=== PATIENT | male | born 1975 | race Caucasian/White ===

== ENCOUNTER 2021-09-29 14:31 | Outpatient (REF) | payer MEDICAID, SELFPAY ==
--- NOTE | ~2021-09-29 | XR_ITS ---
EXAMINATION: LEFT HAND/WRIST CLINICAL INFORMATION: Left hand/wrist COMPARISON: None TECHNIQUE: 4 views FINDINGS: There is no visible acute fracture, dislocation or subluxation seen. The bone and joints appear unremarkable. There is normal articulation of the carpal bones. The soft tissues are normal. XR/XR hand wrist LT IMPRESSION: Unremarkable left hand and wrist exam.
== END 2021-09-29 14:32 | disposition home or self-care (01) ==
LOC: HO.HMGCX 14:31
PROVIDERS: Visit Provider Physician Assistant Medical
DX: M79.642 Pain in left hand (principal); M25.532 Pain in left wrist
CPT/HCPCS: 73110; 73130

== ENCOUNTER 2024-07-15 07:55 | Emergency (ER) | payer OTHER, SELFPAY ==
--- NOTE | ~2024-07-15 | XR_ITS ---
EXAMINATION: XR SHOULDER, RIGHT CLINICAL INFORMATION: injury COMPARISON: None available. TECHNIQUE: AP external rotation, Grashey, scapular Y, and axillary views of the right shoulder. FINDINGS: No acute cortical disruption or malalignment. No lytic or blastic lesions. Focal 6 mm calcification at the supraspinatus tendon insertion adjacent to the greater tuberosity, right humerus. XR/XR shoulder RT min 2V IMPRESSION: Consider tendinosis/tendinopathy, left supraspinatus muscle-tendon. Electronically signed by: Ben Warner MD 07/15/2024 08:29 AM JOSE ALBERTO
[2024-07-15 08:02] VITALS: BP 164/105; PULSE 123; RESP 18; TEMP 36.2; O2SAT 97; BMI 30.1
--- NOTE | 2024-07-15 09:12 | ED_ITS ---
HPI - General Adult General Chief complaint: Extremity Problem Stated complaint: R Shoulder Pain Time Seen by Provider: 07/15/24 09:10 Source: patient Mode of arrival: ambulatory Limitations: no limitations History of Present Illness ED Provider: Sharon Lindsey PA-C HPI narrative: Patient is a 48 year old assigned male at with no reported medical history presenting to the emergency department today with right shoulder pain. Patient states that 2 weeks ago while at work he was moving a television with his boss when the television fell with him holding it, pulling his right shoulder in a downward motion. Patient states that ever since he has had worsening right shoulder pain and decreased range of motion. Patient states that he is right hand dominant. Patient denies any dizziness, lightheadedness, abdominal pain, nausea, vomiting, fever, chills, blurry vision, double vision, loss of vision, chest pain, difficulty breathing, shortness of breath, back pain, night sweats, pain with urination, increased urinary frequency, increased urinary urgency, blood in his urine or stool, syncope or a near syncopal episode, bowel incontinence, bladder incontinence, or any other complaints at this time. Onset (ago): week(s) (2) Location: right and upper extremity Relieving factors: none Exacerbating factors: movement Associated symptoms: denies other symptoms Treatments prior to arrival: none Related Data Home Medications ?Medication ?Instructions ?Recorded ?Confirmed albuterol sulfate 90 mcg/actuation 2 puff inhalation Q6H 09/29/21 aerosol inhaler (ProAir HFA) atenolol 50 mg tablet 50 mg PO BID 09/29/21 clonazepam 0.5 mg tablet 0.5 mg PO TID 09/29/21 diltiazem HCl 240 mg capsule,24 240 mg PO DAILY 09/29/21 hr,extended release (Tiadylt ER) hydrochlorothiazide 12.5 mg capsule 12.5 mg PO DAILY 09/29/21 omeprazole 20 mg tablet,delayed 20 mg PO BID 09/29/21 release ondansetron HCl 4 mg tablet 4 mg PO TID PRN nausea 09/29/21 quetiapine 400 mg tablet,extended 400 mg PO BEDTIME 09/29/21 release 24 hr sertraline 100 mg tablet 200 mg PO QAM 09/29/21 Previous Rx's ?Medication ?Instructions ?Recorded naproxen 500 mg tablet 500 mg PO BID PRN pain 14 days #30 09/29/21 tabs Allergies Allergy/AdvReac Type Severity Reaction Status Date / Time No Known Allergies Allergy Verified 07/15/24 08:05 [No Known Allergies*] Review of Systems Constitutional: Constitutional: Reports no additional constitutional complaints, Denies chills, Denies fever(s) and Denies night sweats Eyes: Eyes: Reports no additional eye complaints, Denies blurry vision, Denies change in vision, Denies diplopia, Denies eye discharge, Denies loss of vision and Denies eye pain ENT: Denies dizziness Cardiovascular: Cardiovascular: Reports no additional cardiovascular complaints, Denies chest pain, Denies lightheadedness, Denies Loss of Conscio usness and Denies dyspnea Respiratory: Respiratory: Reports no additional respiratory complaints and Denies dyspnea Gastrointestinal: Gastrointestinal: Reports no additional gastrointestinal complaints, Denies abdominal pain, Denies melena, Denies hematochezia, Denies change in bowel habits and Denies change in stool character Genitourinary: Genitourinary: Reports no additional male genitourinary complaints, Denies hematuria, Denies oliguria, Denies difficulty urinating, Denies dysuria, Denies urinary frequency, Denies urinary hesitancy, Denies urinary incontinence and Denies urinary urgency Musculoskeletal: Musculoskeletal: Reports no additional musculoskeletal complaints, Denies numbness and Denies tingling Comments: right shoulder pain decreased right shoulder ROM Neurologic: Denies dizziness, Denies loss of vision, Denies numbness and Denies tingling Psychiatric: Psychiatric: Reports no additional psychiatric complaints Endocrine: Endocrine: Reports no additional endocrine complaints Hematologic/Lymphatic: Hematologic/Lymphatic: Reports no additional hematologic/lymphatic complaints Allergic/Immunologic: Allergic/Immunologic: Reports no additional allergic/immunologic complaints [facility] Past Medical History Attestation statement: The following information was validated with the patient. Source: old records reviewed and nursing notes reviewed Social History Social History Advance Directives: No Advance Directives Information Provided: Yes Do you have a plan to hurt others: No Plan Physical Exam ED Vital Signs: Vital Signs - 24 hr 07/15/24 08:02 Temperature 97.2 F Pulse Rate 123 H Respiratory Rate 18 Blood Pressure 164/105 H Pulse Oximetry 97 Oxygen Delivery Method Room Air BMI result Body Mass Index 30.1 Const General: cooperative, no acute distress, alert and awake Nutritional Appearance: well nourished Orientation/consciousness: patient oriented x3 Limitations: no limitations HENMT Head: Yes normal to inspection and Yes atraumatic Ears: hearing grossly normal bilaterally and external ears normal General nose exam: Normal external nose present, no nasal discharge noted and no epistaxis Face and sinus: Yes normal facial exam, No abrasion and No laceration Mouth: Normal oral and palatal mucosa present, no drooling and no muffled voice Eyes General: appearance normal, both eyes and all related structures Periorbital: periorbital findings normal Eyelids: Yes eyelids normal Conjunctivae: conjunctivae normal Pupils: Equal, round and reactive pupils present EOM: EOMs intact bilaterally Neck Neck: Yes normal visual inspection, Yes full ROM and Yes no lymphadenopathy Chest Chest palpation & inspection: normal inspection of the chest Resp Effort & Inspection: normal respiratory effort and able to speak in complete sentences GI Inspection: Yes normal to inspection Neuro General: patient oriented x3 and moves all extremities Cranial nerves: Yes Equal, round and reactive pupils present Cognition (Neuro): normal cognition Extrem Other: pain with right shoulder ROM General: Yes normal to inspection and Yes capillary refill normal Psych Appearance: grossly normal Mental Status: mental status grossly normal Affect: normal affect Attitude: cooperative Thought process: Normal thought process present Thought content: Normal thought content present Insight: Good insight present (Psych) Medical Decision Making Medical Decision Making MDM Narrative: Patient is a 48 year old assigned male at with no reported medical history presenting to the emergency department today with right shoulder pain. Patient's physical exam was as noticed. Patient's right shoulder x-ray showed tendinosis/tendinopathy of the right supraspinatus muscle-tendon. Patient's clinical presentation is consistent with a right rotator cuff injury. I explained my physical exam findings as well as all test results to the patient. I answered all questions asked by the patient. I stressed the importance of the patient taking his medication as directed (either prescribed or as the over the counter packaging recommends). I stressed the importance of the patient following up with his primary care provider, an orthopedic provider, and work connection. I stressed the importance of the patient returning to the emergency department immediately if his symptoms were to worsen or if he were to develop any dizziness, shortness of breath, difficulty breathing, chest pain, blurry vision, loss of vision, nausea, vomiting, abdominal pain, fever, chills, back pain, or any other complaints. Patient verbalized agreement and understanding with this treatment plan and discharge. Differential Diagnosis Differential Diagnoses: The differential diagnosis associated with the presentation includes Right rotator cuff strain Right rotator cuff sprain Right shoulder pain Right shoulder strain Right shoulder injury Admission/Observation Consideration of admission/observation: Escalation of care including admission/observation considered Patient would have been admitted to the hospital had his work up had any findings where hospital admission was appropriate and his clinical presentation warranted hospital admission. Independent Interpretation I performed an independent interpretation of an: Plain X-Ray Interpretation: My interpretation is in agreement with the radiologist's impression of this imaging study. EXAMINATION: XR SHOULDER, RIGHT CLINICAL INFORMATION: injury COMPARISON: None available. TECHNIQUE: AP external rotation, Grashey, scapular Y, and axillary views of the right shoulder. FINDINGS: No acute cortical disruption or malalignment. No lytic or blastic lesions. Focal 6 mm calcification at the supraspinatus tendon insertion adjacent to the greater tuberosity, right humerus. XR/XR shoulder RT min 2V IMPRESSION: Consider tendinosis/tendinopathy, right supraspinatus muscle-tendon. Electronically signed by: Ben Warner MD 07/15/2024 08:29 AM EST Dictated By: Ben Le MD Signed By: Electronically signed by Ben Spear MD 07/15/24 0806 Radiology Impression Discussion of test interpretation with radiology: I have reviewed the radiologist's reading. Discharge Plan Discharge Clinical Impression: Injury of right rotator cuff Patient Disposition: Home, Self-Care Instructions: Rotator Cuff Injury (ED), Rotator Cuff Injury Exercises (DC) Additional Instructions: Follow up with your primary care provider, an orthopedic provider, and work connection. Return to the emergency department immediately if your symptoms worsen or if you develop any dizziness, shortness of breath, difficulty breathing, chest pain, blurry vision, loss of vision, nausea, vomiting, abdominal pain, fever, chills, back pain, or any other complaints. Prescriptions: No Action hydrochlorothiazide 12.5 mg capsule 12.5 mg PO DAILY clonazepam 0.5 mg tablet 0.5 mg PO TID ondansetron HCl 4 mg tablet 4 mg PO TID PRN (Reason: nausea) sertraline 100 mg tablet 200 mg PO QAM quetiapine 400 mg tablet extended release 24 hr 400 mg PO BEDTIME atenolol 50 mg tablet 50 mg PO BID albuterol sulfate [ProAir HFA] 90 mcg/actuation HFA aerosol inhaler 2 puff inhalation Q6H diltiazem HCl [Tiadylt ER] 240 mg capsule,extended release 24 hr 240 mg PO DAILY omeprazole 20 mg tablet,delayed release (DR/EC) 20 mg PO BID naproxen 500 mg tablet 500 mg PO BID PRN (Reason: pain) 14 Days Qty: 30 0RF Referrals: [facility] [place] Family Medicine [Provider Group] (Call to establish and follow up with a primary care provider. If you already have a primary care provider, please follow up with them.) [facility] [place] Primary Care, Joel [Provider Group] (Call to establish and follow up with a primary care provider. If you already have a primary care provider, please follow up with them.) [facility] [place] Primary Care,Mikala [Provider Group] (Call to establish and follow up with a primary care provider. If you already have a primary care provider, please follow up with them.) [facility] [place] Orthopedic Surgeons [Provider Group] (Call to establish and follow up with an orthopedic provider.) Work Connection [Provider Group] (Call to establish and follow up with work connection.) Stand Alone Forms: Work/School Release Print Language: Estonian
[2024-07-15] MEDS: Ketorolac Tromethamine 15 MG/ML VIAL IM (09:26)
[2024-07-15 09:40] VITALS: BP 158/96; PULSE 101; RESP 18; TEMP 36.7; O2SAT 97
== END 2024-07-15 09:41 | disposition home or self-care (01) ==
PROVIDERS: Emergency Provider Student in an Organized Health Care Education/Training Program; PCP Nurse Practitioner Family
DX: S46.001A Unspecified injury of muscle(s) and tendon(s) of the rotator cuff of right shoulder, initial encounter (principal); M25.511 Pain in right shoulder; X50.0XXA Overexertion from strenuous movement or load, initial encounter; X50.9XXA Other and unspecified overexertion or strenuous movements or postures, initial encounter; Y93.9 Activity, unspecified; Y92.89 Other specified places as the place of occurrence of the external cause; Y99.8 Other external cause status; Z79.899 Other long term (current) drug therapy
CPT/HCPCS: 73030; 96372; 99283; 99284; J1885

== ENCOUNTER → 2024-07-15 08:10 | Outpatient (BNV) | payer OTHER, MEDICAID, SELFPAY | PROVIDERS: Visit Provider Radiology Diagnostic Radiology | DX: S46.001A Unspecified injury of muscle(s) and tendon(s) of the rotator cuff of right shoulder, initial encounter (principal) | CPT/HCPCS: 73030 ==

== ENCOUNTER → 2024-07-21 08:00 | Outpatient (BNVA) | payer OTHER, SELFPAY | PROVIDERS: PCP Nurse Practitioner Family; Visit Provider Registered Nurse | DX: Z09 Encounter for follow-up examination after completed treatment for conditions other than malignant neoplasm (principal); S46.011D Strain of muscle(s) and tendon(s) of the rotator cuff of right shoulder, subsequent encounter; X50.0XXD Overexertion from strenuous movement or load, subsequent encounter | CPT/HCPCS: 99204 ==

== ENCOUNTER → 2024-07-28 07:54 | Outpatient (BNVA) | payer OTHER, SELFPAY | PROVIDERS: PCP Nurse Practitioner Family; Visit Provider Registered Nurse | DX: M25.511 Pain in right shoulder (principal); M70.811 Other soft tissue disorders related to use, overuse and pressure, right shoulder | CPT/HCPCS: 99213 ==

== ENCOUNTER → 2024-08-04 08:55 | Outpatient (BNVA) | payer OTHER, SELFPAY | PROVIDERS: PCP Nurse Practitioner Family; Visit Provider Registered Nurse | DX: S46.011D Strain of muscle(s) and tendon(s) of the rotator cuff of right shoulder, subsequent encounter (principal); X50.0XXD Overexertion from strenuous movement or load, subsequent encounter | CPT/HCPCS: 99213 ==

== ENCOUNTER 2024-08-07 07:51 | Outpatient (AMB) | payer OTHER, SELFPAY ==
--- OUTSIDE RECORDS SUMMARY | 2024-08-07 07:53 | XMS_ITS | Clinical Summary ---
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 21 tablet 12/07/2022 Active atenolol (Tenormin) 50 MG tablet Take 50 mg by mouth 2 times daily. 10/19/2022 Active hydroCHLOROthia zide (HYDRODiuril) 12.5 MG tablet Take 12.5 mg by mouth in the morning. 10/31/2022 Active clonazePAM (KlonoPIN) 0.5 MG tablet Take 0.5 mg by mouth 3 times daily. 11/15/2022 Active sertraline (Zoloft) 100 MG tablet TAKE 2 TABLETS BY MOUTH EVERY DAY IN THE MORNING 11/15/2022 Active Tiadylt ER 240 MG 24 hr capsule Take 240 mg by mouth in the morning. 11/29/2022 Active omeprazole (PriLOSEC) [address] capsule Take 40 mg by mouth in the morning. 07/19/2022 Active ondansetron (Zofran) 4 MG tablet TAKE 1 TABLET BY MOUTH EVERY 8 HOURS NEEDED FOR NAUSEA/VOMITI NG FOR 5 DAYS 06/15/2022 Active QUEtiapine XR (SEROquel XR) 400 MG 24 hr tablet Take 400 mg by mouth at bedtime. 10/31/2022 Active amoxicillin (Amoxil) 500 MG capsule Continue Taking 1 tablet (500 mg) by mouth every 8 (eight) hours 9 capsule 12/13/2022 Active Social History Tobacco Use Types Packs/Day Years Used Date Smoking Tobacco: Every Day Cigarettes Tobacco Cessation:Ready to Q uit: No; Counseling Given: Not Answered Alcohol Use Standard Drinks/Week Comments Never 0 (1 standard drink = 0.6 oz pur e alcohol) Comments Unknown Sex and Gender Information Value Date Recorded Sex Assigned at Female 12/06/2022 4:06 PM EDT Legal Sex Male 4:02 PM EDT Gender Identity Female 12/06/2022 4:06 PM EDT Sexual Orientation Choose not to disclose 2022 4:06 PM EDT Last Filed Vital Signs Vital Sign Reading Time Taken Comments Blood Pressure 150/80 12/13/2022 11:21 AM EDT Pulse - - Temperature - - Respiratory Rate - - Oxygen Saturation - - Inhaled Oxygen Concentration - - Weight - - Height - - Body Mass Index - - Plan of Treatment Health Maintenance Due Date Last Done Comments CT Colonography 1975 Colonoscopy 1975 Colorectal Cancer Screening 1975 Dental Oral Exam 1975 Dental Prophylaxis 1975 Dental X-Ray: Full Mouth 1975 Depression Screening 1975 FIT DNA/Cologuard 1975 FIT 1975 FOBT 1975 HIV Screening 1975 Lipid Panel 1975 SDOH Screening 1975 Sigmoidoscopy 1975 Alcohol/Substance Use Screening 1987 Family Planning (PISQ) 08/31/1990 Hepatitis C Screening 08/31/1993 DTaP/Tdap/Td Vaccines (1 - Tdap) 08/31/1994 Hepatitis B Vaccines (1 of 3 - 19+ 3-dose series) 08/31/1994 Pneumococcal Vaccine: Pediat rics (0 to 5 Years) and At-Risk Patients (6 to 49) Years) (1 of 2 - PCV) 08/31/1994 Pap Smear 08/31/1996 Cervical Cancer Screening 08/31/2005 HPV/Cotest 08/31/2005 Mammogram 2015 Dental X-Ray: Bitewings 12/09/2023 12/07/2022 Tobacco Screening 12/14/2023 12/13/2022 COVID-19 Vaccine ( - 2023-2 5 season) 2024 Influenza Vaccine (#1) 2024 Zoster Vaccines (1 of 2) 08/31/2025 RSV Patients and Pa tients Aged 60 years or older (1 - 1-dose 75+ series) 08/31/2050 HIB Vaccines Aged Out No longer eligi ble based on patient's age to complete this topic HPV Vaccines Aged Out No longer eligi ble based on patient's age to complete this topic Hepatitis A Vaccines Aged Out No long er eligible based on patient's age to complete this topic IPV Vaccines Aged Out No longer eligi ble based on patient's age to complete this topic Meningococcal Vaccine Aged Out No jeff kayleigh eligible based on patient's age to complete this topic RSV under 20 months Aged Out No longe r eligible based on patient's age to complete this topic Rotavirus Vaccines Aged Out No longer eligible based on patient's age to complete this topic Procedures Procedure Name Priority Date/Time Associated Diagnosis Comments BITEWING - SINGLE RADIOGRAPHIC IMAGE Routine 12/07/2022 1:00 PM EDT from Last 3 Months or Most Recently Relevant to Health Maintenance Insurance [facility] MEDICAID STAND ADULT
--- OUTSIDE RECORDS SUMMARY | 2024-08-07 07:54 | XMS_ITS | Clinical Summary ---
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 Role Phone Unavailable Primary Care Provider Unavailabl e Social History Tobacco Use Types Packs/Day Years Used Date Smoking Tobacco: Never Assessed Sex and Gender Information Value Date Recorded Sex Assigned at Not on file Gender Identity Not on file Sexual Orientation Not on file Plan of Treatment Health Maintenance Due Date Last Done Comments DTaP,Tdap,and Td Vaccines (1 - Tdap) 08/31/1994 Hepatitis B Vaccines (1 of 3 - 19+ 3-dose series) 08/31/1994 COVID-19 Vaccine (2023-2 5 season) 2024 Influenza Vaccine (#1) 2024 HIB Vaccines Aged Out No longer eligi [...] on patient's age to complete this topic MMR Vaccines Aged Out No longer eligi ble based on patient's age to complete this topic Meningococcal ACWY Vaccine Aged Out N o longer eligible based on patient's age to complete this topic Pneumococcal Vaccine: Pediat rics (0 to 5 Years) and At-Risk Patients (6 to 64 Years) Aged Out No longer eligible b ased on patient's age to complete this topic RSV Immunization Patients Un delon 20 months Aged Out No longer eligible b ased on patient's age to complete this topic Varicella Vaccines Aged Out No longer eligible based on patient's age to complete this topic
--- OUTSIDE RECORDS SUMMARY | 2024-08-07 07:54 | XMS_ITS | Encounter Summary ---
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 Name Role Phone Unavailable Primary Care Provider Unavailabl e Reason for Visit * Reason Onset Date Comments work note 12/14/2022 Encounter Details Date Type Department Care Team (Late st Contact Info) Description 12/14/2022 Telephone [facility] [address] [place] [address] Karen Garrido DDS work note Social History Tobacco Use Types Packs/Day Years Used Date Smoking Tobacco: Every Day Cigarettes Alcohol Use Standard Drinks/Week Comments Never 0 (1 standard drink = 0.6 oz pur e alcohol) Comments Unknown Sex and Gender Information Value Date Recorded Sex Assigned at Female 12/06/2022 4:06 PM EDT Legal Sex Male 4:02 PM EDT Gender Identity Female 12/06/2022 4:06 PM EDT Sexual Orientation Choose not to disclose 2022 4:06 PM EDT COVID-19 Exposure Response Date Recorded In the last 10 days, have yo u been in contact with someone who was confirmed or suspected to have Coronavirus/COVID-19? No / Unsure 12/13/2022 10:50 AM EDT documented as of this encounter Miscellaneous Notes * Telephone Encounter - Rosey Serra - 12/14/2022 10:15 AM EDT Patient called in requesting note for work concerning yesterdays appt. Fax number [phone]. documented in this encounter Plan of Treatment Not on file documented as of this encounter Visit Diagnoses Not on filedocumented in this encounter
[2024-08-07 08:40] VITALS: BMI 30.1
--- NOTE | 2024-08-07 08:40 | MHC.OFFVIS ---
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 Patient reports he has been managing pain with a muscle relaxer and physical therapy, however, he still has discomfort when lifting his arm above his head and to his back. He is also experiencing sharp pains at the right elbow radiating to his right ring and pinky fingers. Patient states he did not have these symptoms prior to his injury. Denies previous injuries or surgeries to his neck or shoulder. 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 He states he was lifting a heavy TV and as the TV was put down he felt a pulling and strain in the right shoulder. He continues to have pain with overhead reaching . He is also experiencing numbness from the elbow down into the hand which extends into the 4th and 5th digit. 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 [employer] Review of Systems Const All systems reviewed & are unremarkable except as noted in HPI and below Physical Exam Vital Signs: BMI result Body Mass Index 30.1 Const General: cooperative and no acute distress Orientation/consciousness: patient oriented x3 Resp Effort & Inspection: normal respiratory effort and able to speak in complete sentences Cardio Peripheral pulses: Peripheral pulses 2+ throughout Neuro General: patient oriented x3 Extrem Other: Right shoulder normal to inspection he has full range of motion in all planes however there are some limitations with forward flexion where he experiences significant pain around 90 degrees. He has 5/5 rotator cuff strength and pain with supraspinatus and external rotation against resistance. Positive Noonan positive Zapata's and positive cross-body abduction. He has a positive Tinel's over the cubital tunnel which radiates down into the 4th and 5th digit. Results Reviewed Results Reviewed: X-rays of the right shoulder obtained on July 15 significant for calcific tendinitis and AC joint arthritis Assessment & Plan Assessment & Plan (1) Calcific tendinitis of right shoulder: Code(s): M75.31 - Calcific tendinitis of right shoulder Category: Medical (2) Right shoulder tendinitis: Code(s): M77.8 - Other enthesopathies, not elsewhere classified Category: Medical (3) Cubital tunnel syndrome on right: Code(s): G56.21 - Lesion of ulnar nerve, right upper limb Category: Medical Plan We discussed options today which includes continuing to work with physical therapy for range of motion and periscapular stabilization. I did offer an injection today which she would like to hold off on. I encouraged him to increase his use of ibuprofen from once a day to 3 times a day. An EMG nerve conduction study of the right upper extremity has been ordered to further evaluate the source of his numbness. He will continue to remain out of work until the EMG study is complete at which point I will follow up to discuss the next step in his treatment. Orders: Orders NE nerve conduction velocity Today R20.0 - Anesthesia of skin, R20.2 - Paresthesia of skin NE electromyogram (EMG) Today R20.0 - Anesthesia of skin, R20.2 - Paresthesia of skin Coding Level of Care Code New Pt Level 3 (14071) Complex EM visit Add On G2211 Diagnoses Calcific tendinitis of right shoulder M75.31 Right shoulder tendinitis M77.8 Cubital tunnel syndrome on right G56.21
== END 2024-08-07 09:12 | disposition home or self-care (01) ==
PROVIDERS: PCP Nurse Practitioner Family; Visit Provider Physician Assistant
DX: M75.31 Calcific tendinitis of right shoulder (principal); M77.8 Other enthesopathies, not elsewhere classified; G56.21 Lesion of ulnar nerve, right upper limb; Z04.2 Encounter for examination and observation following work accident
CPT/HCPCS: 99203; G2211

== ENCOUNTER → 2024-08-07 07:51 | Outpatient (BNVA) | payer OTHER, SELFPAY | PROVIDERS: PCP Nurse Practitioner Family; Visit Provider Physician Assistant | DX: M75.31 Calcific tendinitis of right shoulder (principal); M77.8 Other enthesopathies, not elsewhere classified; G56.21 Lesion of ulnar nerve, right upper limb; R20.0 Anesthesia of skin; R20.2 Paresthesia of skin | CPT/HCPCS: 99202 ==

== ENCOUNTER 2024-09-04 09:28 | Outpatient (AMB) | payer OTHER, SELFPAY ==
--- NOTE | 2024-09-04 09:38 | MHC.OFFVIS ---
Intake Visit Reasons: INJ RT shoulder injection Intake Note: Popeye is a 48 year old male who presents today a for a follow up of right shoulder s/p worker's comp injury to his right RTC, DOI 05/22/24. He has an EMG study scheduled for 09/23/24. Patient reports ongoing discomfort and would like to have an injection todya. Allergies No Known Allergies [No Known Allergies*] Allergy (Verified 08/07/24 08:42) HPI HPI INJ RT shoulder injection: Details: A 49-year-old gentleman returns to the office today for follow-up right shoulder pain. He has been working with physical therapy and continues to have discomfort which is limiting his progress. EMG study is scheduled for September 23. 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 [employer] Review of Systems Const All systems reviewed & are unremarkable except as noted in HPI and below Physical Exam Const General: cooperative and no acute distress Orientation/consciousness: patient oriented x3 Resp Effort & Inspection: normal respiratory effort and able to speak in complete sentences Cardio Peripheral pulses: Peripheral pulses 2+ throughout Neuro General: patient oriented x3 Extrem Other: Right shoulder normal to inspection he has full range of motion in all planes however there are some limitations with forward flexion where he experiences significant pain around 90 degrees. He has 5/5 rotator cuff strength and pain with supraspinatus and external rotation against resistance. Positive Noonan positive [place]'s and positive cross-body abduction. He has a positive Tinel's over the cubital tunnel which radiates down into the 4th and 5th digit. Office Procedures AMB Joint Injection/Aspiration Joint Injection/Aspiration Primary Site: right shoulder Prep: site was prepped using aseptic technique, ethochloride spray was applied and injection warnings given Injected: 80 mg of, DepoMedrol, with 8 mL of, 1% plain lidocaine and in the subcromial space Approach Used: posterolateral Procedure: The patient tolerated the procedure well and there was some relief with the local anesthesia Coding 42335 - Glenohumeral/Tronchanteric Bursa/Intraarticular Procedure code (CPT) selection complete Assessment & Plan Assessment & Plan (1) Right shoulder tendinitis: Code(s): M77.8 - Other enthesopathies, not elsewhere classified Category: Medical (2) Calcific tendinitis of right shoulder: Code(s): M75.31 - Calcific tendinitis of right shoulder Category: Medical Plan Right shoulder injection performed today which she tolerated well. He will continue to work with physical therapy to improve his range of motion and strength. I will contact him once the EMG study is back and we will discuss options at that point. Coding Level of Care Code Est Pt Level 3 (16367) Complex EM visit Add On G2211 Diagnoses Right shoulder tendinitis M77.8 Calcific tendinitis of right shoulder M75.31 CPT Codes Coding - Joint 7: 92083 - Glenohumeral/Tronchanteric Bursa/Intraarticular ([id number])
--- OUTSIDE RECORDS SUMMARY | 2024-09-04 10:14 | XMS_ITS | Clinical Summary ---
Author Organization [employer] Address [address] [facility] [address] [facility] [address] [place] [address] Care Team Providers Care Electrical Equipment Tester Name Role Phone Unavailable Primary Care Provider [...] Most Recently Relevant to Health Maintenance Insurance [facility] MEDICAID STAND ADULT
--- OUTSIDE RECORDS SUMMARY | 2024-09-04 10:14 | XMS_ITS | Clinical Summary ---
Author Organization [facility] ity Address [address] [place] [address] Care Team Providers Care Director Inbound Sales Name Role Phone Unavailable Primary Care Provider Unavailabl e Social History Tobacco Use Types Packs/Day Years Used Date Smoking Tobacco: Never Assessed Sex and Gender Information Value Date Recorded Sex Assigned at Not on file Legal Sex Male 3:59 PM EST Gender Identity Not on file Sexual Orientation [...] patient's age to complete this topic Meningococcal B Vacine Aged Out No lo nger eligible based on patient's age to complete [...]
--- OUTSIDE RECORDS SUMMARY | 2024-09-04 10:14 | XMS_ITS | Encounter Summary ---
Author Organization [employer] Address [address] [facility] [address] [place] [address] Care Team Providers Care Lockstitch Front Edge Tape Sewer Name Role Phone Unavailable Primary Care Provider Unavailabl e Reason for Visit * Reason Onset Date Comments work note 12/14/2022 Encounter Details Date Type Department Care Team (Late st Contact Info) Description 12/14/2022 Telephone [facility] [address] [place] [address] Karen Garrido DDS work note Social History [...] for work concerning yesterdays appt. Fax number [phone]. documented in this encounter Plan of Treatment Not on file documented as of this encounter Visit Diagnoses Not on filedocumented in this encounter
== END 2024-09-04 10:53 | disposition home or self-care (01) ==
PROVIDERS: PCP Nurse Practitioner Family; Visit Provider Physician Assistant
DX: M77.8 Other enthesopathies, not elsewhere classified (principal); M75.31 Calcific tendinitis of right shoulder; Z04.2 Encounter for examination and observation following work accident
CPT/HCPCS: 20610; 99213

== ENCOUNTER → 2024-09-04 09:28 | Outpatient (BNVA) | payer OTHER, SELFPAY | PROVIDERS: PCP Nurse Practitioner Family; Visit Provider Physician Assistant | DX: M75.31 Calcific tendinitis of right shoulder (principal); M77.8 Other enthesopathies, not elsewhere classified | CPT/HCPCS: 20610; 99212; J1010; J2003 ==

== ENCOUNTER 2024-09-10 14:22 | Outpatient (REF) | payer OTHER, SELFPAY ==
--- NOTE | 2024-09-10 14:26 | EMG_ITS ---
Chief complaint: right shoulder and elbow pain, s/p worker's comp injury to his right RTC, DOI 05/22/24. Pain improved since shoulder injection. On and off tingling on 4th and 5th digits. Reason for referral: Evaluate for ulnar neuropathy versus radiculopathy Referred by: Santos SUTTON Procedure done: Right upper extremity NCS/EMG Precautions and/or limitations: None The limb temperature was monitored continuously and remained between 32-36 degrees C during the performance of the NCS. Nerve Conduction Studies Anti Sensory Summary Table ?Stim Site NR Onset (ms) Norm Onset (ms) Peak (ms) Norm Peak (ms) O-P Amp (?V) Norm O-P Amp Site1 Site2 Delta-0 (ms) Dist (cm) Ricardo (m/s) Norm Ricardo (m/s) Right Median Anti Sensory (2nd Digit) Wrist ? 2.3 3.2 <3.6 19.1 >10 Wrist 2nd Digit 2.3 14.0 61 Right Radial Anti Sensory (Thumb) Forearm ? 1.3 2.1 <3.1 13.8 Forearm Thumb 1.3 0.0 Right Ulnar Anti Sensory (5th Digit) Wrist ? 1.9 3.0 <3.7 16.4 >15.0 Wrist 5th Digit 1.9 14.0 74 Motor Summary Table ?Stim Site NR Onset (ms) Norm Onset (ms) O-P Amp (mV) Norm O-P Amp iAmp (mV) Amp (1st) (%) Site1 Site2 Delta-0 (ms) Dist (cm) Ricardo (m/s) Norm Ricardo (m/s) Right Median Motor (Abd Poll Brev) Wrist ? 3.1 <3.9 13.4 >4.5 15.6 100.0 Elbow Wrist 4.0 19.5 49 >45 Elbow ? 7.1 12.9 15.2 96.3 Right Ulnar Motor (Abd Dig Minimi) Wrist ? 2.6 <3.0 8.3 >5 10.5 100.0 B Elbow Wrist 3.1 16.0 52 >45 B Elbow ? 5.7 6.0 8.2 72.3 A Elbow B Elbow 1.3 10.0 77 >45 A Elbow ? 7.0 5.6 7.8 67.5 EMG ?Side Muscle Nerve Root Ins Act Fibs Psw Amp Dur Poly Recrt Int Pat Comment Right 1stDorInt Ulnar C8-T1 Nml Nml Nml Nml Nml 0 Nml Complete Right Biceps Musculocut C5-6 Nml Nml Nml Nml Nml 0 Nml Complete Right Triceps Radial C6-7-8 Nml Nml Nml Nml Nml 0 Nml Complete Right Deltoid Axillary C5-6 Nml Nml Nml Nml Nml 0 Nml Complete Right FlexCarpiUln Ulnar C8,T1 Nml Nml Nml Nml Nml 0 Nml Complete FINDINGS: All motor and sensory nerves tested showed normal latencies, amplitudes and conduction velocities. Concentric needle EMG was performed in selected muscles of the . Study revealed did not reveal signs of electric abnormalities as shown in the table above. IMPRESSION: 1. This is a normal study. 2. There is no electrodiagnostic evidence for median neuropathy, ulnar neuropathy, brachial plexopathy, or cervical radiculopathy. Thank you for your kind referral. Lashell Peña MD, ALEKS Board Certified, [place] Board of Physical Medicine and Rehabilitation (ABPMR) Board Certified, [place] Board of Electrodiagnostic Medicine (ABEM) CODIN 70451 MTDD
--- OUTSIDE RECORDS SUMMARY | 2024-09-10 18:13 | XMS_ITS | Encounter Summary ---
Author Organization [employer] Address [address] [facility] [address] [place] [address] Care Team Providers Care Take Down Inspector Name Role Phone Unavailable Primary Care Provider Unavailabl e Reason for Visit * Reason Onset Date Comments work note 12/14/2022 Encounter Details Date Type Department Care Team (Late st Contact Info) Description 12/14/2022 Telephone [facility] [address] [place] [address] Karen Garrido DDS work note Social History [...] for work concerning yesterdays appt. Fax number [phone]. documented in this encounter Plan of Treatment Not on file documented as of this encounter Visit Diagnoses Not on filedocumented in this encounter
--- OUTSIDE RECORDS SUMMARY | 2024-09-10 18:13 | XMS_ITS | Clinical Summary ---
Author Organization [employer] Address [address] [facility] [address] [place] [address] Care Team Providers Care Email Marketing Executive Name Role Phone Unavailable Primary Care Provider [...] Most Recently Relevant to Health Maintenance Insurance [facility] MEDICAID STAND ADULT
--- OUTSIDE RECORDS SUMMARY | 2024-09-10 18:13 | XMS_ITS | Clinical Summary ---
Author Organization [facility] ity Address [address] [place] [address] Care Team Providers Care Assistant Director Of Financial Aid Name Role Phone Unavailable Primary Care Provider [...]
== END 2024-09-10 14:23 | disposition home or self-care (01) ==
LOC: HO.NEURO 14:22
PROVIDERS: PCP Nurse Practitioner Family; Visit Provider Physician Assistant
DX: R20.0 Anesthesia of skin (principal); R20.2 Paresthesia of skin
CPT/HCPCS: 95886; 95909

== ENCOUNTER → 2024-09-10 14:26 | Outpatient (BNV) | payer OTHER, SELFPAY | PROVIDERS: PCP Nurse Practitioner Family; Visit Provider Physical Medicine & Rehabilitation | DX: R20.0 Anesthesia of skin (principal); R20.2 Paresthesia of skin; M25.511 Pain in right shoulder; M25.521 Pain in right elbow | CPT/HCPCS: 95886; 95909 ==

== ENCOUNTER 2024-09-17 07:00 | Outpatient (RCR) | payer OTHER, SELFPAY ==
--- NOTE | 2024-07-31 08:57 | MHC.PT.EP ---
[facility] [place] [facility] [place] Office [address] Murray Thompson [address] [phone] F: [phone] F: [phone] F: [phone] F: [phone] Physical Therapy Plan of Care Date of Evaluation: 07/31/24 Date of Surgery: Diagnosis: R shoulder pain radiating to fingers. Assessment: Patient is a 48 year old R handed male who presents with s/s consistent with R shoulder pain, radiating to fingers. 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 Patient past medical history includes HTN. Current impairments include pain, posture, ROM, strength, activity tolerance and functional mobility. Functional limitations include decreased ability to sleep, reach, lift, carry, push, pull and dress. Patient is motivated with good rehab potential. Skilled PT will address impairments and functional limitations in order to achieve goals. Frequency and Duration: The patient will be seen 2x/week for 5 weeks Short Term Goals: I with HEP -2 weeks AROM flexion to 150 - 3 weeks ER AROM to 65 - 3 weeks Max pain with daily routine and sleep 4/10 - 3 weeks Custodial Goals: Spadi 30/130 or better - 5 weeks Strength 4+/5 grossly - 5 weeks Max pain with daily routine 2/10 - 5 weeks Full AROM pain free - 5 weeks Treatment Plan: Modalities to reduce pain, spasms and effusion. Manual therapy to restore motion and function. Therapeutic exercise to improve strength and flexibility. Neuromuscular re-education for posture and balance. Therapeutic activities to return to functional activities of daily living. Electronically signed by: Ye Evans, PT Please sign and return to therapist. Thank you for your referral.
--- NOTE | 2025-01-19 11:24 | MHC.PT.DC ---
[facility] [place] [facility] [place] [facility] [place] [facility] [address] [place] Thompson [address] [phone] F: [phone] F: [phone] F: [phone] F: [phone] Physical Therapy Discharge Report Diagnosis: R shoulder pain radiating to fingers. Date of Surgery: Date of Evaluation: 07/31/24 Date of Discharge: 09/21/24 Treatments to Date: 9 Cancellations to Date: No Shows to Date: Discharge Status: Independent with HEP Patient Elected to Stop Discharge Summary: 09/17/24: pt progressing well with strength and ROM. no pain today. progress strength as tolerated until d/c. 09/04/24: responded and progressing well. continue to build strength and motion while managing pain. to get cortisone today. 08/31/24: pt progressing well with skilled PT. less discomfort and pain over the weekend. max pain 09/07 over the weekend. continue to progress as tolerated with strength and posture. 08/27/24: responding well to current program. reduced tissue tension along scap. continue to progress as tolerated with strength. 08/25/24: pt with reduced pain. nearing full flexion AROM. still with some medial scap discomfort addressed manually. continue to progress as tolerated. 08/18/24: pt bothered by pain on medial and sup border of scap. addressed manually with good response. 08/10/24: pt progressing well. some post shoulder discomfort persisting but to lesser degree. 08/03/24: pt progressed with strength and ROM. continue to progress as tolerated. add IR stretching NV. Patient is a 48 year old R handed male who presents with s/s consistent with R shoulder pain, radiating to fingers. 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 Patient past medical history includes HTN. Current impairments include pain, posture, ROM, strength, activity tolerance and functional mobility. Functional limitations include decreased ability to sleep, reach, lift, carry, push, pull and dress. Patient is motivated with good rehab potential. Skilled PT will address impairments and functional limitations in order to achieve goals. Electronically signed by: Ye Evans, PT Please sign and return to therapist. Thank you for your referral.
== END 2025-01-19 11:24 | disposition home or self-care (01) ==
LOC: HO.PTCHIC 07:00
PROVIDERS: PCP Nurse Practitioner Family; Visit Provider Registered Nurse
DX: M25.511 Pain in right shoulder (principal)
CPT/HCPCS: 97110; 97140; 97161

== ENCOUNTER 2024-09-18 08:36 | Outpatient (AMB) | payer OTHER, SELFPAY ==
--- NOTE | 2024-09-18 08:41 | A.OFFVIS_ITS ---
Intake Visit Reasons: OV EMG review R RTC Injury DOI 05/22/24 Intake Note: Popeye is a 48 year old male who presents today a for a follow up of right shoulder s/p worker's comp injury to his right RTC, DOI 05/22/24. Patient was given a cortisone injection at his last visit on 09/04/24 which has provided him with relief. His pain has improved however he continues to have an ongoing pulling sensation at the top of his shoulder. Allergies No Known Allergies [No Known Allergies*] Allergy (Verified 09/18/24 08:51) Medication List - Last Reconciled 09/18/24 by Santos Mendez PA-C atenolol 50 mg PO BID clonazepam 0.5 mg PO TID cyclobenzaprine 1 to 2 orally bedtime PRN; diltiazem HCl ER (Tiadylt ER) 240 mg PO DAILY guanfacine ER 1 mg PO BEDTIME hydrochlorothiazide 12.5 mg PO DAILY ibuprofen 800 mg PO Q8H PRN omeprazole 20 mg PO BID ondansetron HCl 4 mg PO TID PRN quetiapine ER 400 mg PO BEDTIME sertraline 200 mg PO QAM HPI HPI OV EMG review R RTC Injury DOI 05/22/24: Details: 49-year-old gentleman returns to the office today for a follow-up right shoulder injury date of injury 05/24/2024. He states since the injection he has noticed significant relief in the shoulder. He has continued with physical therapy and is regaining his motion and strength. He denies numbness and tingling states that is resolved since the injection. 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 This is a normal study. 2. There is no electrodiagnostic evidence for median neuropathy, ulnar neuropathy, brachial plexopathy, or cervical radiculopathy. Assessment & Plan Assessment & Plan (1) Calcific tendinitis of right shoulder: Code(s): M75.31 - Calcific tendinitis of right shoulder Category: Medical (2) Right shoulder tendinitis: Code(s): M77.8 - Other enthesopathies, not elsewhere classified Category: Medical Plan I encouraged him to continue working with physical therapy and transition to a home exercise program. I explained he may have occasional flare-ups which he should use anti-inflammatories for. He can increase activities as tolerated and will return to work on 09/21 without restrictions. If symptoms arise or there is any concerns he will contact our office otherwise follow up as needed. Coding Level of Care Code Est Pt Level 3 (25008) Complex EM visit Add On G2211 Diagnoses Calcific tendinitis of right shoulder M75.31 Right shoulder tendinitis M77.8
== END 2024-09-18 09:41 | disposition home or self-care (01) ==
LOC: HO.HOS 08:36
PROVIDERS: PCP Nurse Practitioner Family; Visit Provider Physician Assistant
DX: M75.31 Calcific tendinitis of right shoulder (principal); M77.8 Other enthesopathies, not elsewhere classified
CPT/HCPCS: 99213; G2211

== ENCOUNTER → 2024-09-18 08:36 | Outpatient (BNVA) | payer OTHER, SELFPAY | PROVIDERS: PCP Nurse Practitioner Family; Visit Provider Physician Assistant | DX: M75.31 Calcific tendinitis of right shoulder (principal); M77.8 Other enthesopathies, not elsewhere classified | CPT/HCPCS: 99212 ==

== ENCOUNTER 2024-09-23 05:35 | Emergency (ER) | payer OTHER, SELFPAY ==
--- NOTE | ~2024-09-23 | US_ITS ---
EXAMINATION: US ABDOMEN LIMITED CLINICAL INFORMATION: Right upper quadrant tenderness.. COMPARISON: No priors. Correlated to CT dated April 01, 2019. TECHNIQUE: Real-time imaging of the right upper quadrant abdominal viscera. FINDINGS: PANCREAS: No peripancreatic fluid collections. LIVER: Liver measures 18 cm. Increased echotexture. No nodular contour. No solid or cystic lesion identified by the technologist. No intrahepatic biliary ductal dilatation. GALLBLADDER: There is a focal, 2 mm hyperechoic nodule in the gallbladder wall with minimal flow on color Doppler interrogation. No pericholecystic fluid collection or gallbladder wall thickening. COMMON BILE DUCT: 3 mm. RIGHT KIDNEY: 11 cm. Normal echotexture. Normal renal cortical thickness. No hydronephrosis. No solid or cystic lesion. Normal flow on color Doppler interrogation of the renal hilum. FREE FLUID: None. US/US abdomen limited IMPRESSION: Hepatomegaly and steatosis. Probable 2 mm polyp, gallbladder. Recommend follow-up. Electronically signed by: Ben Warner MD 09/23/2024 07:59 AM EDT
[2024-09-23 05:44] VITALS: BP 128/88; PULSE 102; RESP 20; TEMP 36.7; O2SAT 95; BMI 30.1
[2024-09-23 05:52] LABS: MANUAL DIFF FLAG NO
[2024-09-23 05:53] LABS: Basophils Absolute Auto 0.1 X10*3/uL (0.0-0.2); Basophils Percent Auto 0.4 % (0-2); Eosinophils Absolute Auto 0.1 X10*3/uL (0.0-0.4); Eosinophils Percent Auto 0.5 % (0-4); Hematocrit 43.5 % (42.0-52.0); Hemoglobin 15.4 g/dl (14.0-18.0); Imm Gran Abs Auto 0.07 X10*3/uL (0.00-0.03); Imm Gran Pct Auto 0.5 % (0.0-0.4); Lymphocytes Absolute Auto 3.6 X10*3/uL (1.2-4.9); Lymphocytes Percent Auto 24.4 % (20-40); Mean Corpuscular HGB Conc 35.4 g/dl (31.0-36.0); Mean Corpuscular Hemoglobin 33.6 pg (27.0-33.0); Mean Corpuscular Volume 94.8 fL (80.0-98.0); Mean Platelet Volume 8.1 fL (9.4-12.4); Monocytes Absolute Auto 0.6 X10*3/uL (0.1-1.2); Monocytes Percent Auto 4.2 % (2-11); NRBC Pct Auto 0.2 /100WBC (0.0-0.2); Neutrophils Absolute Auto 10.2 x10*3/uL (2.0-8.3); Platelet Count 329 X10*3/uL (160-400); Red Blood Count 4.59 X10*6/uL (4.60-5.80); Red Cell Distribution Width 12.5 % (11.0-16.0); White Blood Count 14.6 X10*3/uL (4.8-10.8)
[2024-09-23 06:14] LABS: Alanine Aminotransferase 82 U/L (0-40); Albumin Level 4.4 g/dL (3.5-5.0); Alkaline Phosphatase 82 U/L (39-117); Anion Gap 15 (12-20); Aspartate Amino Transferase 33 U/L (5-37); Bilirubin Total 0.3 mg/dL (0.0-1.0); Blood Urea Nitrogen 19 mg/dL (9-16); Calcium 9.3 mg/dL (8.4-10.2); Carbon Dioxide 18 mmol/L (22-29); Chloride 106 mmol/L (96-108); Creatinine Clr Calc Pharmacy 83.8; Estimated Glomerular Filt Rate > 60; Glucose Random 176 mg/dL (60-115); Lipase 22 U/L (8-78); Potassium 3.8 mmol/L (3.3-5.1); Sodium 135 mmol/L (135-145); Total Protein 7.6 g/dL (6.5-8.0)
--- NOTE | 2024-09-23 06:29 | ED_ITS ---
HPI - General Adult General Chief complaint: Abdominal Pain Stated complaint: abd pain Time Seen by Provider: 09/23/24 06:29 Source: patient, RN notes reviewed and old records reviewed Mode of arrival: ambulatory Limitations: no limitations History of Present Illness ED Provider: Siri HPI narrative: Patient is a 49-year-old male with history of hypertension, PTSD, anxiety depression presenting to the emergency department with complaint of right upper quadrant abdominal pain since Saturday. Reports associated nausea and vomiting. Denies fevers, diarrhea, constipation. States has had these symptoms intermittently for several years but pain has never been this severe. States pain was preventing him from sleeping the other night. Denies any previous abdominal surgeries. MD complaint: abdominal pain Onset (ago): day(s) Location: abdomen Radiation: non-radiation Severity scale (1-10): 5 Quality: sharp Pain Consistency: colicky Associated symptoms: nausea/vomiting Treatments prior to arrival: none Related Data Home Medications ?Medication ?Instructions ?Recorded ?Confirmed atenolol 50 mg tablet 50 mg PO BID 09/29/21 09/18/24 clonazepam 0.5 mg tablet 0.5 mg PO TID 09/29/21 09/18/24 diltiazem HCl 240 mg capsule,24 240 mg PO DAILY 09/29/21 09/18/24 hr,extended release (Tiadylt ER) hydrochlorothiazide 12.5 mg capsule 12.5 mg PO DAILY 09/29/21 09/18/24 omeprazole 20 mg tablet,delayed 20 mg PO BID 09/29/21 09/18/24 release ondansetron HCl 4 mg tablet 4 mg PO TID PRN nausea 09/29/21 09/18/24 quetiapine 400 mg tablet,extended 400 mg PO BEDTIME 09/29/21 09/18/24 release 24 hr sertraline 100 mg tablet 200 mg PO QAM 09/29/21 09/18/24 guanfacine 1 mg tablet,extended 1 mg PO BEDTIME 09/04/24 09/18/24 release 24 hr Previous Rx's ?Medication ?Instructions ?Recorded ibuprofen 800 mg tablet 800 mg PO Q8H PRN pain #30 tabs 07/21/24 cyclobenzaprine 5 mg tablet See Rx Instructions PO BEDTIME PRN 08/04/24 muscle spasm #10 tabs ibuprofen 600 mg tablet 600 mg PO Q6H PRN pain #20 tabs 09/23/24 ondansetron 4 mg disintegrating 4 mg PO Q8H PRN nausea and 09/23/24 tablet vomiting #10 tabs Allergies Allergy/AdvReac Type Severity Reaction Status Date / Time No Known Allergies Allergy Verified 09/23/24 05:46 [No Known Allergies*] Review of Systems 2 Review of Systems: As per HPI Yes all other systems are reviewed and are negative Constitutional: Constitutional: Reports as per HPI [facility] Social History Social History Patient Tobacco Use Status: Current everyday Tobacco user Advance Directives: No Advance Directives Information Provided: Yes Do you have a plan to hurt others: No Plan Current occupational status: employed 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 Blood pressure normal. Heart rate normal. Respiratory rate normal. Temperature normal. Oxygen saturation normal. Const General: cooperative, healthy appearing and no acute distress Orientation/consciousness: oriented to person, oriented to place, oriented to time and patient oriented x3 Limitations: no limitations HENMT Head: Yes normocephalic and Yes atraumatic Ears: external ears normal General nose exam: Normal external nose present Face and sinus: Yes face symmetric Mouth: oropharynx normal and moist mucous membranes Throat: Yes uvula midline Eyes Pupils: Equal, round and reactive pupils present Neck Neck: Yes normal visual inspection and Yes supple Resp Effort & Inspection: normal respiratory effort and able to speak in complete sentences Auscultation: clear to auscultation bilaterally Cardio Rate: regular rate Rhythm: regular rhythm Heart sounds: S1 normal heart sound present and S2 normal heart sound present GI Palpation (GI): Soft to palpation and Tenderness to palpation present (GI) in the RUQ and Hillman's sign positive Auscultation: normoactive bowel sounds General: Yes no CVA tenderness Back/Spine/Pelvis Back: no CVA tenderness Skin General skin exam: elasticity normal and turgor normal Neuro General: oriented to person, oriented to place, oriented to time, patient oriented x3, moves all extremities, no focal motor deficits and CN's II-XI intact bilaterally Cranial nerves: Yes Equal, round and reactive pupils present Cognition (Neuro): normal cognition Extrem General: Yes full ROM, Yes no pedal edema and Yes no calf tenderness Psych Mental Status: mental status grossly normal Affect: normal affect Thought process: Normal thought process present Medical Decision Making Medical Decision Making [facility] Narrative: Patient is a 49-year-old male with history of hypertension, PTSD, anxiety depression presenting to the emergency department with complaint of right upper quadrant abdominal pain since Saturday. On exam patient is awake, A+Ox3, VS WNL, afebrile, normal neurological exam without focal deficits, physical exam findings as above. Given reported symptoms and physical exam findings, initial differential includes but is not limited to cholecystitis, cholelithiasis, choledocolithiasis, biliary colic. Labs notable for leukocytosis, elevated ALT, normal AST and Tbili. Ultrasound notable for hepatomegaly, steatosis, 2mm gallbladder polyp. My interpretation is in agreement with the radiologist's interpretation. Results discussed with patient and all questions answered. Will refer to GI and general surgery for further evaluation. Return precautions discussed. Will send prescriptions for zofran, 600mg ibuprofen. Patient verbalized understanding of and agreement with plan. Differential Diagnosis Differential Diagnoses: The differential diagnosis associated with the presentation includes As per [facility] Admission/Observation Consideration of admission/observation: Escalation of care including admission/observation considered Patient would have been admitted to the hospital had their work up had any findings where hospital admission was appropriate and their clinical presentation warranted hospital admission. Lab Data [facility] Lab Attestation statement: I reviewed the patient's lab results. As per [facility] 09/23/24 05:46 09/23/24 05:46 Labs: Lab Results 09/23/24 Range/Units 05:46 WBC 14.6 H (4.8-10.8) X10*3/uL RBC 4.59 L (4.60-5.80) X10*6/uL Hgb 15.4 (14.0-18.0) g/dl Hct 43.5 (42.0-52.0) % MCV 94.8 (80.0-98.0) fL MCH 33.6 H (27.0-33.0) pg MCHC 35.4 (31.0-36.0) g/dl RDW 12.5 (11.0-16.0) % Plt Count 329 (160-400) X10*3/uL MPV 8.1 L (9.4-12.4) fL Immature Gran % (Auto) 0.5 H (0.0-0.4) % Neut % (Auto) 70.0 (45-73) % Lymph % (Auto) 24.4 (20-40) % Kent % (Auto) 4.2 (2-11) % Eos % (Auto) 0.5 (0-4) % Baso % (Auto) 0.4 (0-2) % Lymph # (Auto) 3.6 (1.2-4.9) X10*3/uL Kent # (Auto) 0.6 (0.1-1.2) X10*3/uL Eos # (Auto) 0.1 (0.0-0.4) X10*3/uL Baso # (Auto) 0.1 (0.0-0.2) X10*3/uL Abs Immat Gran (auto) 0.07 H (0.00-0.03) X10*3/uL Absolute Neuts (auto) 10.2 H (2.0-8.3) x10*3/uL Absolute Nucleated RBC 0.030 H (0.0-0.012) X10*3/uL Nucleated RBC % (auto) 0.2 (0.0-0.2) /100WBC Sodium 135 (135-145) mmol/L Potassium 3.8 (3.3-5.1) mmol/L Chloride 106 (96-108) mmol/L Carbon Dioxide 18 L (22-29) mmol/L Anion Gap 15 (12-20) BUN 19 H (9-16) mg/dL Creatinine 0.98 (0.5-1.4) mg/dL Estim Creat Clear Calc 83.8 Estimated GFR > 60 Random Glucose 176 H (60-115) mg/dL Calcium 9.3 (8.4-10.2) mg/dL Total Bilirubin 0.3 (0.0-1.0) mg/dL AST 33 (5-37) U/L ALT 82 H (0-40) U/L Alkaline Phosphatase 82 (39-117) U/L Total Protein 7.6 (6.5-8.0) g/dL Albumin 4.4 (3.5-5.0) g/dL Lipase 22 (8-78) U/L Independent Interpretation I performed an independent interpretation of an: Ultrasound Interpretation: RUQ U/S notable for hepatomegaly, steatosis, 2mm gallbladder polyp. Radiology Impression Discussion of test interpretation with radiology: I have reviewed the radiologist's reading. Radiologist Impression: US/US abdomen limited IMPRESSION: Hepatomegaly and steatosis. Probable 2 mm polyp, gallbladder. Recommend follow-up. External Record Review External record reviewed: Inpatient record, Office record and Outpatient record Prescription Management I considered prescription management with: Pain Medication and Other Discharge Plan Discharge Clinical Impression: Hepatomegaly, Hepatic steatosis, Polyp of gallbladder Patient Disposition: Home, Self-Care Instructions: Liver Disease Diet (DC), Non-Alcoholic Fatty Liver Disease (ED) Additional Instructions: You were evaluated in the emergency department today for abdominal pain. Your ultrasound showed evidence of an enlarged and fatty liver as well as a polyp in your gallbladder. We recommend that you follow-up with the computer technology teacher and general surgery regarding these findings. Call their offices to schedule follow-up appointments. You are being prescribed ondansetron which you can use every 8 hours as needed for nausea. You are also being prescribed 600 mg of ibuprofen which you can use every 6 hours as needed for pain. Return to the emergency department if you develop worsening pain, have persistent vomiting, develop fever, or any other new or concerning symptoms. We recommend that you follow up with your primary care provider as well. Prescriptions: New ondansetron 4 mg tablet,disintegrating 4 mg PO Q8H PRN (Reason: nausea and vomiting) Qty: 10 0RF ibuprofen 600 mg tablet 600 mg PO Q6H PRN (Reason: pain) Qty: 20 0RF No Action hydrochlorothiazide 12.5 mg capsule 12.5 mg PO DAILY clonazepam 0.5 mg tablet 0.5 mg PO TID ondansetron HCl 4 mg tablet 4 mg PO TID PRN (Reason: nausea) sertraline 100 mg tablet 200 mg PO QAM quetiapine 400 mg tablet extended release 24 hr 400 mg PO BEDTIME atenolol 50 mg tablet 50 mg PO BID diltiazem HCl [Tiadylt ER] 240 mg capsule,extended release 24 hr 240 mg PO DAILY omeprazole 20 mg tablet,delayed release (DR/EC) 20 mg PO BID guanfacine 1 mg tablet extended release 24 hr 1 mg PO BEDTIME ibuprofen 800 mg tablet 800 mg PO Q8H PRN (Reason: pain) Qty: 30 0RF Rx Instructions: Do not take Naproxen, or any other NSAIDs with this medication cyclobenzaprine 5 mg tablet See Rx Instructions PO BEDTIME PRN (Reason: muscle spasm) Qty: 10 0RF Rx Instructions: 1 to 2 orally bedtime PRN; Referrals: [facility] [place] Gastroenterology Services [Provider Group] - 1 week (hepatomegaly, hepatic steatosis, gallbladder polyp) [facility] [place] General Surgeons [Provider Group] - 1 week (hepatomegaly, hepatic steatosis, gallbladder polyp) Stand Alone Forms: Work/School Release Print Language: Italian
[2024-09-23] MEDS: Ondansetron ODT 4 MG TAB.RAPDIS TRANSLINGU (08:26)
[2024-09-23] MEDS: Ibuprofen 600 MG TABLET PO (08:26)
[2024-09-23 08:32] VITALS: BP 128/88; PULSE 102; RESP 20; TEMP 36.7; O2SAT 95
== END 2024-09-23 08:32 | disposition home or self-care (01) ==
PROVIDERS: Emergency Provider Emergency Medicine; PCP Nurse Practitioner Family
DX: K82.4 Cholesterolosis of gallbladder (principal); K76.0 Fatty (change of) liver, not elsewhere classified; R16.0 Hepatomegaly, not elsewhere classified; R10.11 Right upper quadrant pain; R11.2 Nausea with vomiting, unspecified; I10 Essential (primary) hypertension; Z79.899 Other long term (current) drug therapy
CPT/HCPCS: 36415; 76705; 80053; 83690; 85025; 99283; 99284

== ENCOUNTER → 2024-09-23 06:41 | Outpatient (BNV) | payer OTHER, SELFPAY | PROVIDERS: Emergency Provider Emergency Medicine; PCP Nurse Practitioner Family; Visit Provider Radiology Diagnostic Radiology | DX: K76.0 Fatty (change of) liver, not elsewhere classified (principal); R16.0 Hepatomegaly, not elsewhere classified | CPT/HCPCS: 76705 ==